=== PATIENT | female | born 1975 | race African-American/Black ===

== ENCOUNTER 2016-05-15 07:25 | Inpatient (IN) | payer OTHER ==
[2016-05-15 07:55] LABS: BASOPHIL 0.2 % (0-2); EOSINOPHIL 0.2 % (0-5); HCT 37.2 % (37.0-47.0); HGB 13.3 g/dl (12.5-16.0); LYMPHOCYTE 8.9 % (15-48); MCH 31.9 pg (25.0-31.0); MCHC 35.8 g/dL (32.0-36.0); MCV 89.2 fL (78.0-100.0); MONOCYTE 4.1 % (0-12); MPV 9.4 fL (6.0-9.5); NEUTROPHIL 86.6 % (41-80); PLT 341 K/uL (150-400); RBC 4.17 M/uL (4.20-5.40); RDW 12.2 % (11.5-14.0); WBC 16.3 K/uL (4.0-10.5)
[2016-05-15 08:11] LABS: ALBUMIN 4.6 g/dL (3.5-5.0); BILIRUBIN - TOTAL 0.4 mg/dL (0.1-1.0); CREATININE 0.5 mg/dL (0.5-1.0); GLOBULIN (CALCULATION) 2.5 g/dL (2.2-4.2); POTASSIUM 3.9 mmol/L (3.5-5.1); TOTAL PROTEIN 7.1 g/dL (6.4-8.3)
[2016-05-16 10:38] LABS: BASOPHIL 0.2 % (0-2); EOSINOPHIL 0.7 % (0-5); HCT 34.1 % (37.0-47.0); HGB 12.1 g/dl (12.5-16.0); LYMPHOCYTE 30.6 % (15-48); MCH 31.8 pg (25.0-31.0); MCHC 35.5 g/dL (32.0-36.0); MCV 89.5 fL (78.0-100.0); MONOCYTE 7.4 % (0-12); MPV 9.3 fL (6.0-9.5); NEUTROPHIL 61.1 % (41-80); PLT 296 K/uL (150-400); RBC 3.81 M/uL (4.20-5.40); RDW 12.1 % (11.5-14.0); WBC 8.1 K/uL (4.0-10.5)
[2016-05-16 10:57] LABS: BILIRUBIN - TOTAL 0.8 mg/dL (0.1-1.0); CREATININE 0.6 mg/dL (0.5-1.0); GLOBULIN (CALCULATION) 2.2 g/dL (2.2-4.2); POTASSIUM 3.9 mmol/L (3.5-5.1); TOTAL PROTEIN 6.2 g/dL (6.4-8.3)
[2016-05-16 20:44] LABS: BILIRUBIN NEGATIVE (NEGATIVE); BLOOD 3+ Ery/uL (NEGATIVE); CLARITY CLEAR (CLEAR); GLUCOSE (U) NORMAL (NORMAL); KETONE (U) NEGATIVE (NEGATIVE); LEUKOCYTES TRACE Leu/uL (NEGATIVE); NITRITE NEGATIVE (NEGATIVE); PROTEIN 1+ mg/dL (NEGATIVE); SPECIFIC GRAVITY <=1.005 (1.001-1.030); UROBILINOGEN 0.2 mg/dL (0.2-1.0)
[2016-05-16 20:49] LABS: SQUAMOUS EPITHELIAL CELLS RARE
[2016-05-18 05:20] LABS: BASOPHIL 0.1 % (0-2); EOSINOPHIL 0.1 % (0-5); HCT 32.4 % (37.0-47.0); HGB 11.5 g/dl (12.5-16.0); LYMPHOCYTE 16.9 % (15-48); MCH 31.5 pg (25.0-31.0); MCHC 35.5 g/dL (32.0-36.0); MCV 88.8 fL (78.0-100.0); NEUTROPHIL 72.9 % (41-80); PLT 320 K/uL (150-400); RBC 3.65 M/uL (4.20-5.40); RDW 11.9 % (11.5-14.0); WBC 12.9 K/uL (4.0-10.5)
[2016-05-18 05:38] LABS: CREATININE 0.6 mg/dL (0.5-1.0); POTASSIUM 4.1 mmol/L (3.5-5.1)
[2016-05-19 05:59] LABS: HCT 30.9 % (37.0-47.0); HGB 10.9 g/dl (12.5-16.0); MCH 31.3 pg (25.0-31.0); MCHC 35.3 g/dL (32.0-36.0); MCV 88.8 fL (78.0-100.0); MPV 9.1 fL (6.0-9.5); RBC 3.48 M/uL (4.20-5.40); WBC 8.6 K/uL (4.0-10.5)
[2016-05-19 06:35] LABS: ALBUMIN 3.8 g/dL (3.5-5.0); BILIRUBIN - TOTAL 0.9 mg/dL (0.1-1.0); CREATININE 0.6 mg/dL (0.5-1.0); GLOBULIN (CALCULATION) 1.8 g/dL (2.2-4.2); TOTAL PROTEIN 5.6 g/dL (6.4-8.3)
[2016-05-19] MEDS ORDERED: OMEPRAZOLE20 MG PO (12:53)
[2016-05-19] MEDS ORDERED: NORCO 5-325 TA1 EACH PO (12:53)
== END 2016-05-19 10:45 | disposition home or self-care (01) | DRG 419 ==
LOC: FER 07:25 → FMS 10:00
PROVIDERS: Internal Medicine; Surgery; ADMIT Internal Medicine
PROC: 0FT44ZZ Resection of Gallbladder, Percutaneous Endoscopic Approach (ICD-10-PCS; principal; 2016-05-15)
PROC: BF13YZZ Fluoroscopy of Gallbladder and Bile Ducts using Other Contrast (ICD-10-PCS; 2016-05-15)
DX: K80.00 Calculus of gallbladder with acute cholecystitis without obstruction (principal); F17.210 Nicotine dependence, cigarettes, uncomplicated; K21.9 Gastro-esophageal reflux disease without esophagitis
CPT/HCPCS: 36415; 74300; 76705; 80053; 81001; 82150; 83690; 83735; 84703; 85025; 88304; 94010; C9113; J0131; J1100; J1170; J1885; J2405; J2543; J2704; J2710; J3010; Q9962